=== PATIENT | female | born 2000 | race Two or more races ===

== ENCOUNTER 2022-06-16 22:27 | Emergency (ER) | payer MEDICAID ==
[~2022-06-16] VITALS: Ht 152.4 cm; Wt 93.0 kg
[2022-06-16 22:50] VITALS: BP 115/78
== END 2022-06-17 03:14 | disposition home or self-care (01) ==
LOC: ER 22:27
DX: S93.402A Sprain of unspecified ligament of left ankle, initial encounter (principal); W22.8XXA Striking against or struck by other objects, initial encounter; Y93.89 Activity, other specified; Y92.89 Other specified places as the place of occurrence of the external cause; Y99.8 Other external cause status
CPT/HCPCS: 73610